=== PATIENT | female | born 1940 | race Caucasian/White ===

== ENCOUNTER → 2023-04-10 09:28 | Outpatient (BNVA) | payer MEDICARE, SELFPAY | PROVIDERS: Visit Provider Nurse Practitioner Family | DX: C44.319 Basal cell carcinoma of skin of other parts of face (principal); L57.8 Other skin changes due to chronic exposure to nonionizing radiation; C25.9 Malignant neoplasm of pancreas, unspecified; L82.1 Other seborrheic keratosis; L81.4 Other melanin hyperpigmentation; L85.3 Xerosis cutis; D22.9 Melanocytic nevi, unspecified; Z85.828 Personal history of other malignant neoplasm of skin | CPT/HCPCS: 99214 ==